=== PATIENT | female | born 1930 | race Caucasian/White ===

== ENCOUNTER 2019-01-25 08:38 | Emergency (ER) | payer MEDICARE, OTHER ==
[~2019-01-25] VITALS: Ht 167.6 cm; Wt 65.9 kg
[~2019-01-25 08:38] MED LIST: ALBU18HF2 IH; ASPI-1265 PO; BUDE10.2 INH; CARV-49 PO; CLIN300C53 PO; CYCL-1 PO; DIGO250T4 PO; FURO40TA4 PO; LOSA50TA3 PO; LOVA40TA76 PO; MAGN100T5 PO; MULT-785 PO; OMEG1CAP21 PO; POTA20TA19 PO; RIVA20TA PO
--- NOTE | 2019-01-25 09:35 | NUR ---
pt back from xray
[2019-01-25 10:22] VITALS: BP 134/66
== END 2019-01-25 10:25 | disposition home or self-care (01) ==
LOC: ER 08:39
DX: S90.32XA Contusion of left foot, initial encounter (principal); S90.02XA Contusion of left ankle, initial encounter; S80.212A Abrasion, left knee, initial encounter; I25.10 Atherosclerotic heart disease of native coronary artery without angina pectoris; E78.00 Pure hypercholesterolemia, unspecified; I10 Essential (primary) hypertension; J44.9 Chronic obstructive pulmonary disease, unspecified; Z86.73 Personal history of transient ischemic attack (TIA), and cerebral infarction without residual deficits; Z90.49 Acquired absence of other specified parts of digestive tract; Z90.710 Acquired absence of both cervix and uterus; Z95.1 Presence of aortocoronary bypass graft; Z95.0 Presence of cardiac pacemaker; Z98.890 Other specified postprocedural states; Z88.0 Allergy status to penicillin; Z88.6 Allergy status to analgesic agent; Z91.040 Latex allergy status; Z79.82 Long term (current) use of aspirin; Z79.899 Other long term (current) drug therapy; W18.39XA Other fall on same level, initial encounter; Y93.89 Activity, other specified; Y92.89 Other specified places as the place of occurrence of the external cause; Y99.8 Other external cause status
CPT/HCPCS: 73564; 73610; 73630; 99284

== ENCOUNTER 2019-06-20 00:39 | Emergency (ER) | payer MEDICARE, OTHER ==
[~2019-06-20] VITALS: Ht 167.6 cm; Wt 68.2 kg
[2019-06-20 00:42] VITALS: BP 133/79
[2019-06-20] MEDS ORDERED: oxymetazoline 15 ML nasal spray NS ONE (01:50)
== END 2019-06-20 02:17 | disposition home or self-care (01) ==
LOC: ER 00:39
DX: R04.0 Epistaxis (principal); I10 Essential (primary) hypertension; J44.9 Chronic obstructive pulmonary disease, unspecified; E78.00 Pure hypercholesterolemia, unspecified; Z88.8 Allergy status to other drugs, medicaments and biological substances; Z88.0 Allergy status to penicillin; Z91.040 Latex allergy status; Z79.899 Other long term (current) drug therapy; Z79.82 Long term (current) use of aspirin; Z86.73 Personal history of transient ischemic attack (TIA), and cerebral infarction without residual deficits; Z95.0 Presence of cardiac pacemaker; Z87.440 Personal history of urinary (tract) infections; Z90.49 Acquired absence of other specified parts of digestive tract; Z98.890 Other specified postprocedural states; Z95.1 Presence of aortocoronary bypass graft; Z90.710 Acquired absence of both cervix and uterus
CPT/HCPCS: 99284

== ENCOUNTER 2019-09-29 10:01 | Emergency (ER) | payer MEDICARE, OTHER ==
[~2019-09-29] VITALS: Ht 167.6 cm; Wt 71.0 kg
--- NOTE | 2019-09-29 10:43 | NUR ---
PATIENT STATES THAT SHE HAS HAD FREQUENT BLOODY NOSE EPISODES RECENTLY. TAKES XARELTO, HISTORY OF BLOOD CLOTS. IN ADDITION, PATIENT HAVING BLACK STOOLS, AND EXTREME FATIGUE WTIH WEAKNESS.
[2019-09-29 11:03] LABS: BASOPHILS % (AUTO) 0.9 % (0-1); EOSINOPHILS # (AUTO) 0.1 X10'3 (0-0.9); EOSINOPHILS % (AUTO) 2.1 % (0-6); HEMATOCRIT 35.8 % (35.0-45.0); HEMOGLOBIN 11.8 g/dl (12.0-16.0); LYMPHOCYTES # (AUTO) 1.4 X10'3 (1.1-4.8); MEAN CORPUSCULAR HGB CONC 33.1 g/dL (33.0-36.5); MEAN CORPUSCULAR VOLUME 87.7 FL (78-98); MEAN PLATELET VOLUME 6.8 FL (7.4-10.4); MONOCYTES # (AUTO) 0.6 X10'3 (0-0.9); MONOCYTES % (AUTO) 10.5 % (2-12); NEUTROPHILS # (AUTO) 3.3 X10'3 (1.8-7.7); NEUTROPHILS % (AUTO) 60.5 % (42-75); PLATELET COUNT 210 X10'3 (140-440); RED BLOOD COUNT 4.08 X10'6 (4.20-5.60); WHITE BLOOD COUNT 5.5 X10'3 (4.5-11.0)
[2019-09-29 11:16] LABS: PARTIAL THROMBOPLASTIN TIME 34 SECONDS (22-32)
[2019-09-29 11:18] LABS: ALANINE AMINOTRANSFERASE 27 U/L (12-78); ALBUMIN 3.5 G/DL (3.4-5.0); ALBUMIN/GLOBULIN RATIO 0.9 (1.1-1.5); ALKALINE PHOSPHATASE 79 IU/L (46-116); ANION GAP 6 (8-16); ASPARTATE AMINO TRANSFERASE 25 U/L (10-37); BILIRUBIN,TOTAL 0.4 MG/DL (0.1-1.0); BLOOD UREA NITROGEN 23 MG/DL (7-18); BUN/CREATININE RATIO 21.9 (6.6-38.0); CALCIUM 9.2 MG/DL (8.5-10.1); CHLORIDE 105 MMOL/L (99-107); CREATININE 1.05 MG/DL (0.40-0.90); GLUCOSE 96 MG/DL (70-104); POTASSIUM 4.3 MMOL/L (3.5-5.1); SODIUM 140 MMOL/L (135-145); TOTAL CARBON DIOXIDE 28.7 MMOL/L (24-32); TOTAL PROTEIN 7.4 G/DL (6.4-8.2); eGFR 49 ML/MIN
--- NOTE | 2019-09-29 11:51 | NUR ---
SHELBI FROM THE BLOOD BANK CALLED TO INFORM STAFF THAT THIS PATIENT HAS ANTIBODIES IN HER BLOOD THAT MAY DELAY CROSSMATCHING BLOOD PRODUCTS, IF THEY WILL BE NECESSARY. MURRAY FRAZIER NOTIFIED OF THIS FACT.
[2019-09-29 12:04] LABS: TROPONIN I < 0.04 NG/ML (0.0-0.05)
[2019-09-29 12:33] VITALS: BP 102/75
== END 2019-09-29 12:37 | disposition home or self-care (01) ==
LOC: ER 10:03
DX: K92.1 Melena (principal); I25.10 Atherosclerotic heart disease of native coronary artery without angina pectoris; E78.00 Pure hypercholesterolemia, unspecified; I10 Essential (primary) hypertension; J44.9 Chronic obstructive pulmonary disease, unspecified; Z90.49 Acquired absence of other specified parts of digestive tract; Z95.1 Presence of aortocoronary bypass graft; Z90.710 Acquired absence of both cervix and uterus; Z95.0 Presence of cardiac pacemaker; Z86.73 Personal history of transient ischemic attack (TIA), and cerebral infarction without residual deficits; Z98.890 Other specified postprocedural states; Z88.0 Allergy status to penicillin; Z88.6 Allergy status to analgesic agent; Z91.040 Latex allergy status; Z79.82 Long term (current) use of aspirin; Z79.899 Other long term (current) drug therapy
CPT/HCPCS: 36415; 80053; 84484; 85025; 85610; 85730; 86870; 86885; 86900; 86901; 86902; 86905; 93005; 99284